=== PATIENT | female | born 1975 | race Caucasian/White ===

== ENCOUNTER → 2022-04-16 | Outpatient (CLI) | payer BC ==
--- NOTE | 2022-04-19 20:19 | MM ---
Reason for Exam: Screening (asymptomatic). Baseline mammogram. Patient History: Menarche at age 9. First Full-Term at age 26. Last menstrual period: 03/16/2022 Risk Values: Vane 5 year model risk: 1.1%. NCI Lifetime model risk: 11.3%. Prior Study Comparison: Patient's first Mammogram. Tissue Density: There are scattered fibroglandular densities. Findings: Analyzed By CAD. Some vague asymmetric density 4:00 posterior left breast likely asymmetric fibroglandular tissue. Recommend further evaluation with spot compression views. Otherwise, no discrete abnormality is seen. Overall Assessment: Incomplete: need additional imaging evaluation, BI-RAD 0 Management: Special View Mammogram of the left breast. Including spot 3-D CC, spot 3-D MLO, and 3-D lateral views. Targeted left breast ultrasound if any persisting abnormality. [facility] will attempt to contact patient to return for supplemental views and ultrasound if indicated. Electronically signed and approved by: Amparo Larson M.D. Radiologist
== END | disposition home or self-care (01) ==
LOC: RADMAMWWP 07:30
PROVIDERS: ATTEND Family Medicine
DX: Z12.31 Encounter for screening mammogram for malignant neoplasm of breast (principal)
CPT/HCPCS: 77067

== ENCOUNTER → 2023-07-14 | Outpatient (CLI) | payer BC ==
--- NOTE | 2023-07-14 20:22 | MM ---
Reason for Exam: Screening (asymptomatic). Last mammogram was performed 1 year(s) and 3 month(s) ago. Patient History: Menarche at age 9. First Full-Term at age 26. Patient has history of breast feeding. Paternal grandmother had breast cancer. Last menstrual period: 07/07/2023 Risk Values: Vane 5 year model risk: 1.1%. NCI Lifetime model risk: 11.0%. Prior Study Comparison: 04/16/2022 Bilateral MG screening mammo w CAD, [facility]. 04/22/2022 Left MG 3D work up w/cad LT, [facility]. Tissue Density: There are scattered fibroglandular densities. Findings: Analyzed By CAD. There is no suspicious group of microcalcifications or new suspicious mass in either breast. Overall Assessment: Negative, BI-RAD 1 Management: Screening Mammogram of both breasts in 1 year. . Patient should continue monthly self-breast exams. A clinical breast exam by your physician is recommended on an annual basis. This exam should not preclude additional follow-up of suspicious palpable abnormalities. Note on Vane scores and lifetime risk: 1. A Vane score greater than 3% is considered moderate risk. If this is the case, consider specialist referral to assess eligibility for a risk reducing agent. 2. If overall lifetime risk for the development of breast cancer is 20% or higher, the patient may qualify for future screening with alternating mammogram and breast MRI. Electronically signed and approved by: Amparo Larson M.D. Radiologist
== END | disposition home or self-care (01) ==
LOC: RADMAMWWP 07:28
PROVIDERS: ATTEND Family Medicine
DX: Z12.31 Encounter for screening mammogram for malignant neoplasm of breast (principal); Z80.3 Family history of malignant neoplasm of breast
CPT/HCPCS: 77063; 77067

== ENCOUNTER → 2024-07-23 | Outpatient (CLI) | payer BC ==
--- NOTE | 2024-07-23 08:24 | MM ---
Reason for Exam: Screening (asymptomatic). Last mammogram was performed 1 year(s) and 1 month(s) ago. Patient History: Menarche at age 9. First Full-Term at age 26. Patient has history of breast feeding. Paternal grandmother had breast cancer. Risk Values: Vane 5 year model risk: 1.2%. NCI Lifetime model risk: 10.8%. Prior Study Comparison: 04/16/2022 Bilateral MG screening mammo w CAD, [facility]. 04/22/2022 Left MG 3D work up w/cad , [facility]. 07/14/2023 Bilateral MG 3D screening mammo w/cad, [facility]. Tissue Density: There are scattered areas of fibroglandular density. Findings: Analyzed By CAD. A few tiny scattered benign-appearing round calcifications bilaterally are redemonstrated. Benign-appearing bilateral axillary lymph nodes are again seen. There is no suspicious new group of microcalcifications or new suspicious mass in either breast. Overall Assessment: Benign, BI-RAD 2 Management: Screening Mammogram of both breasts in 1 year. . Patient should continue monthly self-breast exams. A clinical breast exam by your physician is recommended on an annual basis. This exam should not preclude additional follow-up of suspicious palpable abnormalities. Note on Vane scores and lifetime risk: 1. A Vane score greater than 3% is considered moderate risk. If this is the case, consider specialist referral to assess eligibility for a risk reducing agent. 2. If overall lifetime risk for the development of breast cancer is 20% or higher, the patient may qualify for future screening with alternating mammogram and breast MRI. [facility], , 07/23/2024 8:21 AM. Electronically signed and approved by: Alejandro May M.D.
== END | disposition home or self-care (01) ==
LOC: RADMAMWWP 07:27
PROVIDERS: ATTEND Family Medicine
DX: Z12.31 Encounter for screening mammogram for malignant neoplasm of breast (principal); R92.323 Mammographic fibroglandular density, bilateral breasts; Z80.3 Family history of malignant neoplasm of breast
CPT/HCPCS: 77063; 77067